=== PATIENT | female | born 1940 | race American Indian/Alaskan Native ===

== ENCOUNTER 2018-11-26 09:18 | Outpatient (CLI) | payer MEDICARE ==
--- NOTE | 2018-11-26 12:26 | Vascular Lab Report ---
PROCEDURE: VL VENOUS DUPLEX LE BILAT TECHNIQUE: Miramontes scale, color and pulsed Doppler ultrasound with color flow and spectral analysis eval uation of both lower extremities were performed to assess for deep vein thrombosis. HISTORY: EDEMA COMPARISONS: None currently available. FINDINGS: RIGHT extremity: There is normal grayscale appearance and compressibility. Normal phasic pulsed Doppler and normal col or Doppler flow are visualized. The interrogated vessels show normal augmentation. LEFT extremity: There is normal grayscale appearance and compressibility. Normal phasic pulsed Doppler and normal col or Doppler flow are visualized. The interrogated vessels show normal augmentation. IMPRESSION: * No evidence for DVT. This document is electronically signed by Logan Moreno MD., November 26 2018 12:23:59 PM ET
--- NOTE | 2018-11-26 19:50 | Vascular Lab Report ---
PROCEDURE: VL VENOUS DUPLEX UE LT TECHNIQUE: HISTORY: EDEMA COMPARISONS: FINDINGS: Diffuse soft tissue edema without mass or collection No evidence of deep venous thrombosis left upper extremity IMPRESSION: Negative for DVT. This document is electronically signed by Jesse Dennison MD., November 26 2018 07:47:20 PM ET
== END 2018-11-26 09:19 | disposition home or self-care (01) ==
LOC: VAS 09:18
DX: R60.0 Localized edema (principal)
CPT/HCPCS: 93970

== ENCOUNTER 2018-12-31 10:12 | Outpatient (CLI) | payer MEDICARE ==
--- NOTE | 2018-12-31 11:36 | XRay Report ---
CHEST TWO VIEWS: 12/31/18 10:12:00 CLINICAL: Dyspnea COMPARISON: none FINDINGS: The heart is probably normal size. The left cardiac silhouette is silhouetted by the opacification in the left lower lobe. There is also blunting of the left costophrenic angle and silhouetting of the left hemidiaphragm. The left upper lobe is clear in the right lung is clear. The pulmonary vessels are normal.Scoliosis and degenerative changes in the spine. IMPRESSION: Suspect left lower lobe pneumonia with a small left pleural effusion.No CHF.
== END 2018-12-31 10:13 | disposition home or self-care (01) ==
LOC: SPVIMAG 10:12
DX: R06.00 Dyspnea, unspecified (principal); M47.819 Spondylosis without myelopathy or radiculopathy, site unspecified; M41.9 Scoliosis, unspecified
CPT/HCPCS: 71046